=== PATIENT | male | born 1960 | race Caucasian/White ===

== ENCOUNTER 2020-10-01 07:14 | Day surgery (SDC) | payer BC ==
[2020-10-01] MEDS ORDERED: Lidocaine 1% MPF 2 ML VIAL ONE (07:44)
[2020-10-01] MEDS ORDERED: PROPOFOL 0 ML ONE (08:49)
[2020-10-01] MEDS ORDERED: Lidocaine 2% MPF 10 ML AMP (For Epidural Use) ONE (08:49)
[2020-10-01] MEDS ORDERED: PROPOFOL 20 ML ONE (08:49)
[2020-10-01] MEDS ORDERED: PHENYLEPHRINE-NS 100 MCG/ML 10 ML SYRINGE ONE (08:58)
== END 2020-10-01 10:15 | disposition home or self-care (01) ==
LOC: CSHSDC 07:14
PROVIDERS: ATTEND Internal Medicine Gastroenterology
PROC: 0DB38ZZ Excision of Lower Esophagus, Via Natural or Artificial Opening Endoscopic (ICD-10-PCS; principal; 2020-10-01)
PROC: 0W3P8ZZ Control Bleeding in Gastrointestinal Tract, Via Natural or Artificial Opening Endoscopic (ICD-10-PCS; principal; 2020-10-01)
DX: K70.30 Alcoholic cirrhosis of liver without ascites (principal); I85.10 Secondary esophageal varices without bleeding; K76.6 Portal hypertension; K31.89 Other diseases of stomach and duodenum; K29.30 Chronic superficial gastritis without bleeding; B18.2 Chronic viral hepatitis C
CPT/HCPCS: 88305; J2001; J2704

== ENCOUNTER 2021-06-12 16:06 | Outpatient (CLI) | payer BC ==
[2021-06-13 00:41] LABS: SARS-CoV-2 PCR by NAA Not Detected (NotDetected)
== END 2021-06-12 16:07 | disposition home or self-care (01) ==
LOC: CSHLAB 16:06
PROVIDERS: ATTEND Internal Medicine Gastroenterology
DX: Z20.822 Contact with and (suspected) exposure to COVID-19 (principal); I85.00 Esophageal varices without bleeding; K74.60 Unspecified cirrhosis of liver
CPT/HCPCS: U0003; U0005

== ENCOUNTER 2021-06-17 10:44 | Day surgery (SDC) | payer BC ==
[2021-06-12 14:39] VITALS: BMI 33.2
[2021-06-17] MEDS ORDERED: Lidocaine 1% MPF 2 ML VIAL ONE (11:06)
[2021-06-17] MEDS ORDERED: PROPOFOL 20 ML ONE (11:20)
[2021-06-17] MEDS ORDERED: Fentanyl 100 MCG/2 ML VIAL ONE (11:21)
[2021-06-17] MEDS ORDERED: Lidocaine 1% PF 5 ML VIAL ONE (11:21)
[2021-06-17] MEDS ORDERED: Glycopyrrolate 0.2 MG/ML 5 ML SYRINGE ONE (11:28)
[2021-06-17] MEDS ORDERED: ePHEDrine Sulfate 50 MG/10 ML VIAL ONE (11:31)
== END 2021-06-17 12:09 | disposition home or self-care (01) ==
LOC: CSHSDC 10:44
PROVIDERS: ATTEND Internal Medicine Gastroenterology
PROC: 0DB68ZX Excision of Stomach, Via Natural or Artificial Opening Endoscopic, Diagnostic (ICD-10-PCS; principal; 2021-06-17)
DX: K76.6 Portal hypertension (principal); I85.00 Esophageal varices without bleeding; K70.30 Alcoholic cirrhosis of liver without ascites; K31.7 Polyp of stomach and duodenum; K44.9 Diaphragmatic hernia without obstruction or gangrene; K31.9 Disease of stomach and duodenum, unspecified; K31.89 Other diseases of stomach and duodenum; B18.2 Chronic viral hepatitis C; I85.10 Secondary esophageal varices without bleeding; D64.9 Anemia, unspecified; Z79.899 Other long term (current) drug therapy
CPT/HCPCS: 88305; 88312; J2704; J3010